=== PATIENT | male | born 1945 | race Caucasian/White ===

== ENCOUNTER 2018-05-26 05:35 | Inpatient (IN) | payer OTHER ==
[2018-05-14 13:11] LABS: HEMATOCRIT 43.1 % (42.0-52.0); HEMOGLOBIN 15.2 gm/dL (14.0-18.0); MCH 32.2 pg (26.0-34.0); MCHC 35.3 g/dL (28.0-37.0); MCV 91.4 fL (80.0-100.0); RBC 4.72 mil/uL (4.50-6.00); RDW 13.2 % (10.5-14.5); WBC 6.5 thou/uL (4.0-11.0)
[2018-05-14 13:15] LABS: URINE CLARITY CLEAR; URINE COLOR YELLOW; URINE GLUCOSE-RANDOM* NEGATIVE (Negative); URINE KETONES NEGATIVE (Negative); URINE PROTEIN (DIPSTICK) NEGATIVE (Negative); URINE SPECIFIC GRAVITY 1.015 (1.005-1.035)
[2018-05-14 13:16] LABS: URINE BILIRUBIN NEGATIVE (Negative); URINE BLOOD NEGATIVE (Negative); URINE LEUKOCYTES-REFLEX NEGATIVE (Negative); URINE NITRITE-REFLEX NEGATIVE (Negative); URINE UROBILINOGEN 0.2 E.U./dl (0.2-1.0)
[2018-05-14 13:21] LABS: ALBUMIN 3.9 g/dL (3.4-5.0); CALCIUM 9.5 mg/dL (8.5-10.1); POTASSIUM 3.9 mmol/L (3.5-5.1)
[2018-05-14 13:22] LABS: PROTIME 10.3 Seconds (9.3-11.4)
--- NOTE | 2018-05-14 15:48 | EKG ---
[address] [address] ELECTROCARDIOGRAM REPORT Name: JUSTIN MOON Room #: PRE IN [facility]#: [id number] Admission: Attend Phys: Tyrese Harris MD Discharge: Date of : 41 Report #: [id number] THIS REPORT FOR: //name// [facility] Test Date: 2018-05-14 Test Time: 13:11:31 Pat Name: JUSTIN MOON Department: Room: Gender: M Development System Efficiency Manager: bj boudreaux : 1945 Requested By: Tyrese Harris Order Number: [id number] MD: Sony Molina Measurements Intervals Hopkins Rate: 71 P: 18 SD: 178 QRS: -13 QRSD: 112 T: 19 QT: 387 QTc: 421 Interpretive Statements Sinus rhythm Incomplete right bundle branch block Left ventricular hypertrophy Compared to ECG 02/18/2012 14:53:00 Incomplete right bundle-branch block now present Left ventricular hypertrophy now present Myocardial infarct finding no longer present Electronically Signed On 05-14-2018 15:48:16 LENS CLEANER by Sony Molina [email or web address] <ELECTRONICALLY SIGNED> By: Sony Molina MD 05/14/18 1548 1311 1311 Sony Molina MD /EPI
[~2018-05-26] VITALS: Ht 200.7 cm; Wt 117.0 kg
--- NOTE | ~2018-05-26 | O ---
[facility] [place] [address] OPERATIVE REPORT Name: JUSTIN MOON Room #: 150-3 ADM IN M.R.#: [id number] Admission: 05/26/18 Attend Phys: Tyrese Harris MD Discharge: Date of : 41 Report #: [id number] THIS REPORT FOR: //name// CC: Shwetha Harris DATE OF SERVICE: 05/26/2018 PREOPERATIVE DIAGNOSIS: Right knee osteoarthritis. POSTOPERATIVE DIAGNOSIS: Right knee osteoarthritis. PROCEDURE: Right total knee arthroplasty using NAVIO robotic assistant reading teacher. SURGEON: Tyrese Harris MD COMPUTER SYSTEMS DESIGNER: Nancy Card PA-C INDICATIONS FOR COMPUTER SYSTEMS DESIGNER: Throughout the case, extensive retraction and manipulation of the knee was required. This was afforded to me by my assistant reading teacher. ANESTHESIA: LMA with an adductor canal block. IMPLANTS: [employer] size 8 Legion cobalt chrome posterior stabilized femur, size 7 tibia, size 9 polyethylene and size 38 patella. TOURNIQUET TIME: 72 minutes. ESTIMATED BLOOD LOSS: 50 mL. COMPLICATIONS: None. SPECIMEN: None. CONDITION FOLLOWING THE OPERATIVE ROOM: Stable. INDICATIONS FOR PROCEDURE: The patient is a 72-year-old gentleman with severe right knee osteoarthritis. She had failed conservative measures for this and after discussion with him, he elected for right total knee arthroplasty. DESCRIPTION OF PROCEDURE: Risks, benefits, alternatives, complications were discussed in detail with the patient including but not limited to risk of anesthesia, risk of damage to nerves, arteries, blood vessels, risk for infection, bleeding, risk for continued knee pain and need for reoperation. Informed consent was obtained from the patient. Right knee was appropriately marked in the preoperative holding area. Adductor canal block was placed by [facility] [address] [place] [address] OPERATIVE REPORT Name: JUSTIN MOON HARI Room #: 150-3 ADM IN M.R.#: [id number] Admission: 05/26/18 Attend Phys: Tyrese Harris MD Discharge: Date of : 41 Report #: [id number] Anesthesia. IV Ancef was given for preoperative antibiotics. She was brought to the operating room and placed in the supine position on the operating room table. LMA anesthesia was induced without complication. Tourniquet was placed on the right thigh. Right lower extremity was prepped and draped in normal sterile fashion. Timeout was performed properly identifying the patient and procedure as well as the instrumentation and implants. All in the Operating Room were in agreement. Right lower extremity was exsanguinated, tourniquet was inflated. Tourniquet time was 72 minutes. Standard midline approach to knee was made with 10 blade through the skin. Dissection was taken down sharply to the fascia and deep flaps were developed medially and laterally. Fresh #10 blade was used to make a medial parapatellar arthrotomy and the knee was inspected. There was severe tricompartmental osteoarthritic change. ACL and PCL were removed sharply. Reference pins were then placed in the femur and the tibia and the knee was visually mapped using the NAVIO robotic system. Intraoperative plan was made and we sized a size 8 femur and a size 7 tibia. After acceptance of the intraoperative plan, the distal femoral cut was made with the NAVIO. The size 8, 4-in-1 cutting block was placed on the femur. Anterior, posterior, and chamfer cuts were made. Attention was turned to the tibia. The remainder of the menisci were removed with Bovie cautery. The tibial resection was then performed while using the [employer] system for placement of the tibial cut guide. After this, flexion and extension gaps were checked and found to have somewhat tight and medially. Medial osteophytes were removed from the femur and this balanced the knee well. Tibia was sized, found to be a size 7. A size 7 tibial trial was placed, pinned and punched. Size 8 femoral trial was placed and box cut was made. This was trialed with a size 9 polyethylene. Knee was taken through range of motion and found to have 1 mm of laxity both medially and laterally throughout range of motion both manually as well as visually. A 9 mm was taken off the posterior surface of the patella and a size 38 patellar trial button was placed. Knee was taken through range of motion, found to be stable, found to have good patellar tracking. Trial components were removed. Bony ends were thoroughly irrigated with normal saline. A final size 7 tibia, size 8 Legion cobalt chrome posterior stabilized femur and a size 38 patella were cemented in place using standard cementation techniques. While the cement cured, a periarticular injection consisting of morphine, ropivacaine, epinephrine and Toradol was placed around the knee joint capsule. After the cement cured, the tourniquet was deflated. Hemostasis was obtained with Bovie cautery. A final size 9 polyethylene was placed. A gram of vancomycin was placed deep in the joint. Fascia was closed with 0 Vicryl, skin was closed with 2-0 Vicryl, 3-0 Monocryl, Dermabond and a INDY dressing was applied. The patient tolerated this procedure well and went to Recovery Room under care of Anesthesia postoperatively. By: [id number] Tyrese Harris MD /nt
[~2018-05-26 05:35] MED LIST: CALCIUM 600 +1 EAC1 PO; CENTRUM SILVER1 EAC2 PO; HYDROCHLOROTHIA25 M2 PO; VITAMIN C1000 MG PO; VITAMINC500 PO
[2018-05-26 14:16] VITALS: BP 138/90
[2018-05-26 19:27] VITALS: BP 128/72
[2018-05-26 20:30] VITALS: BP 141/78
[2018-05-26 21:30] VITALS: BP 132/74
[2018-05-26 22:30] VITALS: BP 140/66
[2018-05-26 23:30] VITALS: BP 129/69
[2018-05-27] VITALS (9 sets, daily range): BP systolic 110–138; BP diastolic 58–83
--- NOTE | 2018-05-27 05:24 | NUR ---
Pt came up to unit approx 1900 after right total knee surgery. PICCO dressing clean and intact. Ice pack in place. Apnea monitor in place. 2L O2. Able to void. Up with 1 person and a walker. IVF and antibiotics administered. Pain controlled with prn pain meds. Repositioned overnight. Call light within reach. Will continue to monitor and assist with needs.
[2018-05-27 05:37] LABS: HEMATOCRIT 39.4 % (42.0-52.0); HEMOGLOBIN 13.6 gm/dL (14.0-18.0); MCH 31.6 pg (26.0-34.0); MCHC 34.5 g/dL (28.0-37.0); MCV 91.6 fL (80.0-100.0); RBC 4.3 mil/uL (4.50-6.00); RDW 13.3 % (10.5-14.5); WBC 15.6 thou/uL (4.0-11.0)
[2018-05-27] MEDS ORDERED: NEURONTIN 300300 M1 PO (10:12)
[2018-05-27] MEDS ORDERED: TRI-BUFFERED A325 M1 PO (10:12)
--- NOTE | 2018-05-27 12:07 | NUR ---
ASSUMED CARE THIS AM, SHIFT ASSESSMENT DONE, MEDS GIVEN, VSS. REPORTED PAIN, PRN PAIN MEDS GIVEN. WORKED WITH PHYSICAL THERAPHY. DENIES ANY OTHER CONCERNS NOW. WILL CONTINUE TO ASSESS AND ASSIST WITH ADLs NEEDED.
--- NOTE | 2018-05-27 12:42 | NUR ---
FAXED REFERRAL TO [facility] SPOKE WITH NELSON IN ADM. SHE RECEIVED REFERRAL AND REVIEWED AND WILL BE ABLE TO ACCEPT AT DC. AWAITING OT TO SEE PT. TO FAX TO [facility] SO THEY CAN SUBMIT FOR AUTH. DCP TO FOLLOW.
--- NOTE | 2018-05-27 13:21 | NUR ---
ASSESSMENT-PT LIVES IN A HOUSE WITH HIS . PT SAYS IS 1 YR OLDER BUT HAS TROUBLE WALKING AROUND AND USES A CANE TO GET AROUND. PT TAKES HIS OWN SHOWER. BOTH DRIVE. 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 THEY HAVE A SON IN [place] AND A DTR IN [place], [place]. PT SAYS HIS HAS 2 WALKERS AT HOME. PT WANTS TO GO TO REHAB AT [facility]. ASKED DC ROSS LIFT OPERATOR TO FAX REFERRAL AND S/W ORTHO NURSE PRACTIONER. FOLLOWING TO ASSIST WITH DC PLANNING.
[2018-05-28 04:30] VITALS: BP 129/69
--- NOTE | 2018-05-28 05:16 | NUR ---
ASSUMED PT CARE AROUND 1900. A&OX4. C/O RT KNEE PAIN. RT KNEE DRESSING C/D/I. ICE PACK TO RT KNEE. PAIN MEDICATION GIVEN INDICATED FOR KNEE PAIN. UP TO BSC MULTIPLE TIMES TO VOID. PT IS PASSING FLATUS, BUT NO BM YET. PT SLEPT MOST OF THE NIGHT. PROGRESSING TOWARD POC GOALS. WILL CONTINUE TO MONITOR FURTHER.
[2018-05-28 05:33] LABS: HEMATOCRIT 36.5 % (42.0-52.0); HEMOGLOBIN 12.6 gm/dL (14.0-18.0); MCH 31.7 pg (26.0-34.0); MCHC 34.7 g/dL (28.0-37.0); MCV 91.3 fL (80.0-100.0); RBC 3.99 mil/uL (4.50-6.00); RDW 13.4 % (10.5-14.5); WBC 8.9 thou/uL (4.0-11.0)
[2018-05-28 07:53] VITALS: BP 127/74
[2018-05-28 09:13] VITALS: BP 127/74
--- NOTE | 2018-05-28 09:25 | NUR ---
ASSESMENT COMPLETED. VSS. A/O. C/O PAIN MANAGED BY MEDS ORDERED. NO NOTED SOA. NO NV. INDY DRESSING CDI. PT RESTING IN BED AT THSI TIME. WILL CONT. TO MONITOR.
--- NOTE | 2018-05-28 10:38 | NUR ---
[facility] can accept the pt and has ins auth in place for admission today if medically stable. Dc business planner to follow for final orders and confirm transport if dc ready today. Chart copy in progress.
--- NOTE | 2018-05-28 11:54 | NUR ---
PT. DISCHARGING TODAY TO [facility] SPOKE WITH NELSON IN ADM. SHE RECEIVED DC ORDERSS/SUMMARY AND ARRANGED TRANSPORTATION VIA [facility] FOR 1500 TODAY. DCP NOTIFIED (RACHAEL) OF DISCHARGE AND TIME OF TRANSPORT. UNIT NOTIFIED AND CHART COPY PER US. RN TO CALL REPORT TO [phone].
--- NOTE | 2018-05-28 13:50 | NUR ---
PT REFUSED FLU SHOT.
--- NOTE | 2018-05-28 14:19 | NUR ---
PAIN MORE CONTROLLED THIS AFTERNOON. PT AGREEABLE FOR DC TO SNF TODAY. WILL WAIT FOR TRANSPORT.
--- NOTE | 2018-05-28 14:27 | NUR ---
REPORT CALLED IN TO FACILITY- [facility].
== END 2018-05-28 16:53 | DRG 470 ==
LOC: 4E 05:35 → TBA 05:35 → PRE 05:53 → 4E 19:03
PROVIDERS: ADMIT Orthopaedic Surgery
DX: M17.11 Unilateral primary osteoarthritis, right knee (principal); Z28.21 Immunization not carried out because of patient refusal
CPT/HCPCS: 10783; 50010; 50101; 50415; 50954; 51130; 51225; 53000; 53078; 53364; 54118; 56527; 56528; 57095; 57103; 57109; 57110; 57113; 57127; 57180; 62110; 62900; 64043; 65060; 70005